=== PATIENT | male | born 1960 | race Caucasian/White ===

== ENCOUNTER 2022-05-12 20:23 | Outpatient (CLI) | payer OTHER | END 2022-05-12 20:24 | disposition home or self-care (01) | LOC: SC 20:23 | PROVIDERS: ATTEND Nurse Practitioner Family | DX: I25.10 Atherosclerotic heart disease of native coronary artery without angina pectoris (principal); I10 Essential (primary) hypertension; F32.A Depression, unspecified; G47.33 Obstructive sleep apnea (adult) (pediatric); G47.61 Periodic limb movement disorder | CPT/HCPCS: 95810 ==

== ENCOUNTER 2022-05-20 08:16 | Outpatient (CLI) | payer OTHER ==
[2022-05-20 08:53] VITALS: BP 120/68
--- NOTE | 2022-05-20 08:53 | SLEEP CARE CONSULTATION ---
Information from patient questionnaire entered by Marcia Daniel. I have reviewed and concur with the information entered by Marcia Daniel. This document represents the service I personally performed and the decisions made by , Thea Keith ARNP. History of Present Illness Service Date and Time: 05/20/2022 08 Initial [place] Sleepiness Scale score: 0 (04/14/22) Current [place] Sleepiness Scale score: 2 (05/20/22) Additional HPI information: KATEY LANG returns for follow up and results of the recently performed polysomnography. I explained the pathophysiology behind obstructive sleep apnea. We then spent quite a bit of time discussing different treatment options. For mild obstructive sleep apnea, surgery and oral appliance are alternatives to nasal CPAP therapy but in moderate or severe cases, nasal CPAP is the most effective and reliable treatment. Because apnea is primarily in supine position, then positional management therapy could be effective. Methods discussed such as positioning with pillows to prevent supine sleep. I reviewed the impact of weight changes on sleep apnea. Patient was cautioned about risks of drowsy driving until sleepiness symptoms resolve. Sleep Study - Results Type of Sleep Study: Polysomnography (COMPLETED 05/12/22) Prior sleep studies: Yes (2005) Polysomnography/Home Sleep Study results: IMPRESSION: The quality of the study is good. The patient had reduced sleep efficiency due to a prolonged awakening in the middle of the night. The sleep architecture was abnormal for sleep fragmentation and reduced amount of time spent in REM and slow wave sleep (N3). Respiratory monitoring showed moderate obstructive sleep apnea-hypopnea (AHI = 26.3) associated with frequent arousals, oxyhemoglobin desaturation and mild hypoxia (fernanda oxygen saturation of 82%). The respiratory events occurred only during supine sleep (supine AHI = 40.4; non-supine = 0.00). Snore was light to moderate in intensity. There was moderate periodic leg movement of sleep not contributing to the sleep fragmentation. Cardiac rhythm was normal sinus rhythm without significant arrhythmia. No abnormal behavior (parasomnia) observed during the night. Allergies and Home Medications Drug allergies reviewed: Yes (NKDA) Home medication list reviewed: Yes (no changes) Review of Systems Review of systems same as previous: Yes (no changes) Physical Exam Vital signs obtained and entered by: MARCIA Capellan MA Blood Pressure: 120/68 (LEFT ARM) Cuff size: regular Heart Rate: 68 O2 Saturation: 96 Height: 6 ft 1 in Weight: 193 lb 6.4 oz Body Mass Index: 25.4 BMI Classification: Overweight Impression and Plan 1. Obstructive Sleep Apnea-Hypopnea Syndrome, moderate, with lowest oxygen saturation of 82%. Positive pressure therapy could benefit hypertension, cardiac disease (CHF, CHD), depression and gastric reflux. Patient did try a CPAP in the past and was not able to tolerate the mask. He tried a nasal cushion and a full face. He is seeing an ENT specialist since he cannot breathe through his nose who is the one who referred him here. He is to follow up with the ENT to explore his surgical options. Since patients apnea is primarily in supine position, patient advised to try positional therapy and he agreed with plan. He is also advised to lose weight as this will reduce snoring and apnea. An oral appliance can also be used for snoring but often is not covered by insurance. Follow up is scheduled for one month to check effectiveness. 2. Hypoxemia, mild, with a fernanda oxygen saturation of 82% and 19.9 minutes spent under 90%. His baseline oxygen saturation was normal with an average oxygen saturation of 91%. 3. Periodic limb movement, moderate, that did not fragment patients sleep. Periodic limb movement of sleep (PLMS) is characterized by episodes of repetitive limb movements that occur during sleep and usually involve the lower limbs. The etiology is unknown. Caffeine can aggravate PLMS and should be avoided. Sleep hygiene methods can also improve sleep as well as lifestyle changes such as regular exercise. Patient was advised that no treatment is needed at this time. If symptoms increase, then further evaluation is indicated. * Positional therapy * Attempt to lose weight. * Avoid supine sleep * The patient is again cautioned about driving until sleepiness completely resolves. * Return in one month. I will assess response to therapy at that time. Counseling Topics: Weight loss health impact Visit Type: In Office Time Spent with Patient (minutes): 21 Provider Statement: I spent 100% of the Face to Face Visit with the patient with greater than 50% spent counseling the patient and coordination of care.
== END 2022-05-20 08:17 | disposition home or self-care (01) ==
LOC: SC 08:16
PROVIDERS: ATTEND Nurse Practitioner Family
DX: G47.33 Obstructive sleep apnea (adult) (pediatric) (principal); R09.02 Hypoxemia; G47.61 Periodic limb movement disorder; E66.3 Overweight; Z68.25 Body mass index [BMI] 25.0-25.9, adult
CPT/HCPCS: 99212; 99213

== ENCOUNTER 2022-07-16 08:20 | Outpatient (CLI) | payer OTHER ==
[2022-07-16 08:54] VITALS: BP 122/70
--- NOTE | 2022-07-16 08:54 | SLEEP CARE CONSULTATION ---
Information from patient questionnaire entered by Marcia Daniel. I have reviewed and concur with the information entered by Marcia Daniel. This document represents the service I personally performed and the decisions made by me, Thea Keith ARNP. History of Present Illness Service Date and Time: 07/16/2022 0820 Previous diagnosis: Moderate, Obstructive Sleep Apnea-Hypopnea Syndrome AHI: 26.3 (04/2022) Reason for follow up: other (POSITIONAL F/U) Prior sleep studies: Yes (2005) Year and Where: 04/2022 [facility] Type of Sleep Study: Polysomnography HPI additional information: KATEY LANG was diagnosed to have moderate, AHI 26.3, obstructive sleep apnea-hypopnea syndrome and returned today for Positional therapy two month follow-up. Sleep Study - Results Prior sleep studies: Yes (2005) CPAP Compliance Data Compliance data discussion: He states he gets nasal congestion/sinus issue when on his right side. When he tries to sleep on his left side he just cannot get comfortable and ends up on his back. Subjective On therapy, patient: denies: sleeping better, awakening more refreshed, more rested overall, drowsiness while driving Initial [place] Sleepiness Scale score: 0 (04/14/22) Current [place] Sleepiness Scale score: 0 (07/16/22) Allergies and Home Medications Known drug allergies: No Drug allergies reviewed: Yes (allergies to cats, dogs, mold) Home medication list reviewed: Yes (no changes) Allergy and home medication list: Allergies No Known Drug Allergies Allergy (Verified 07/15/22 13:04) Review of Systems Review of systems same as previous: Yes (no changes) Physical Exam Vital signs obtained and entered by: MARCIA Capellan MA Blood Pressure: 122/70 (LEFT ARM) Cuff size: regular Heart Rate: 68 O2 Saturation: 96 Height: 6 ft 1 in Weight: 195 lb 12.8 oz Body Mass Index: 25.8 BMI Classification: Overweight Impression and Plan 1. Obstructive Sleep Apnea-Hypopnea Syndrome, moderate. Patient does not feel that positional therapy is going very well. He is finding that he cannot stay off of his back easily. He has not been able to see the ENT specialist because his referral . He thinks he would like to try to see if he can be successful with the CPAP at this time. I will start him on nasal auto CPAP therapy with pressure set at 4-15 cm H2O. I explained to him about compliance and that we will need to see him about a month after he obtains his CPAP. I also advised that CPAP therapy could benefit his hypertension, cardiac disease, depression and gastric reflux. He voiced understanding and agreement. Patient's apnea severity and rationale for treatment to reduce apnea, improve sleep quality and reduce cardiovascular and cerebrovascular events was reviewed. 2. Overweight, unspecified. Currently patients BMI is 25.8. Obesity increases the risk of apnea, CPAP pressure requirements and overall health risks eb ecially cardiovascular and diabetes. Thus, patient is advised to lose weight. * Nasal auto CPAP therapy, pressure at 4-15 cm H2O. * Attempt to lose weight. * Avoid supine sleep until using CPAP. * Return one month after CPAP obtained. I will assess response to therapy and compliance at that time. Counseling Topics: Sleeping position, Weight loss health impact Visit Type: In Office Time Spent with Patient (minutes): 24 Provider Statement: I spent 100% of the Face to Face Visit with the patient with greater than 50% spent counseling the patient and coordination of care.
== END 2022-07-16 08:21 | disposition home or self-care (01) ==
LOC: SC 08:20
PROVIDERS: ATTEND Nurse Practitioner Family
DX: G47.33 Obstructive sleep apnea (adult) (pediatric) (principal); E66.3 Overweight; Z68.25 Body mass index [BMI] 25.0-25.9, adult
CPT/HCPCS: 99212; 99213

== ENCOUNTER 2023-03-25 11:15 | Outpatient (CLI) | payer OTHER ==
--- NOTE | 2023-03-25 19:35 | XRAY Report ---
PROCEDURE: Chest 2V INDICATIONS: INTERMITTENT CHEST PAIN TECHNIQUE: 2 views of the chest were acquired. COMPARISON: None. FINDINGS: Surgical changes and devices: None. Lungs and pleura: No pleural effusions or pneumothorax. Lungs are clear. Mediastinum: Mediastinal contours appear normal. Heart size is normal. Bones and chest wall: No suspicious bony lesions. Overlying soft tissues appear unremarkable. IMPRESSION: No acute cardiopulmonary process. Reviewed by: Kumar Suresh MD on 03/25/2023 7:33 PM PST Approved by: Kumar Suresh MD on 03/25/2023 7:33 PM PST Station ID: [id number]
== END 2023-03-25 11:30 | disposition home or self-care (01) ==
LOC: DI.N 11:15
PROVIDERS: ATTEND Specialist
DX: R07.89 Other chest pain (principal)